=== PATIENT | female | born 1955 | race Caucasian/White ===

== ENCOUNTER 2018-02-13 12:50 | Observation (INO) ==
[2018-02-13] MEDS ORDERED: Acetaminophen 325 MG Tablet PO PRN (20:57)
[2018-02-13] MEDS ORDERED: Zolpidem Tartrate 5 MG Tablet PO PRN (20:57)
[2018-02-13] MEDS ORDERED: Bisacodyl 10 MG Supp RECTAL PRN (20:57)
[2018-02-13] MEDS ORDERED: Sodium Chloride 0.9% 2 ML Flush PRN IV.FLUSH (21:18)
--- NOTE | 2018-02-13 22:26 | P.HPIM ---
[facility] of Present Illness [facility]: No Primary Care Physician Chief Complaint: Left flank pain History of Present Illness: Ms. Ontiveros is a pleasant 62-year-old female with a history of nephrolithiasis who presented to the emergency room in [place] on 02/13/2018 complaining of left flank pain. She was found to have a UTI, 2 mm nephrolithiasis in the left proximal ureter, and moderate hydronephrosis on the left. The patient was seen in her hospital room. She reports pain relief with IV morphine given in [place] -current pain level is 3 out of 10. Pain was dull and aching located on the left flank and was associated with nausea. The patient states she had no recorded fevers but felt chills on Tuesday. Denies any dysuria or hematuria. Denies any vomiting or diarrhea. Denies any chest pain or shortness of breath. Review of Systems All other systems reviewed negative except as stated in HPI PMFSH - History History Provided By: Patient - Medical History Medical History: Medical History (Last Updated 02/13/18 @ 22:46 by VÍCTOR Starr) Nephrolithiasis - Surgical History Surgical History: Surgical History (Last Reviewed 02/13/18 @ 22:45 by VÍCTOR Starr) History of breast biopsy - Family History Family History: Family History (Last Updated 02/13/18 @ 22:45 by VÍCTOR Starr) Daughter No problems noted. Father Alzheimer's dementia Mother Alzheimer's dementia Nephrolithiasis - Tobacco History Smoking Status: Former smoker (During teen years) Tobacco Type: Cigarettes - Alcohol History How Often Do You Have a Drink Containing Alcohol: Never - Substance Use History Substance History: No History of Abuse Medications and Allergies Active Medications: Active Medications Acetaminophen (Tylenol) 650 mg PO Q4H PRN PRN Reason: Temp > 100.4 Bisacodyl (Dulcolax Supp) 10 mg RECTAL DAILY PRN PRN Reason: SEVERE CONSITIPATION Sodium Chloride (Ns Inj) 1,000 mls @ 100 mls/hr IV.CONT .Q10H CLAUS Ondansetron HCl (Zofran Inj) 4 mg IV.PUSH Q6H PRN PRN Reason: NAUSEA OR VOMITING Sennosides (Senokot) 17.2 mg PO Q12H PRN PRN Reason: Moderate Constipation Sodium Chloride (Ns Flush) 2 ml IV.FLUSH BID CLAUS Sodium Chloride (Ns Flush) 2 ml IV.FLUSH PRN PRN PRN Reason: FLUSH AFTER USING IV ACCESS Zolpidem Tartrate (Ambien) 5 mg PO HS PRN PRN Reason: INSOMNIA Allergies Allergy/AdvReac Type Severity Reaction Status Date / Time codeine AdvReac Nausea Verified 02/13/18 13:02 Home Medications Medication Instructions Recorded Confirmed Type No Known Home Medications 02/13/18 02/13/18 History Exam Narrative: GENERAL: This is an older morbidly obese female patient, in no apparent distress. SKIN: No rashes, ecchymoses or lesions. Cool and dry. HEAD: Atraumatic. Normocephalic. EYES: No scleral icterus. No injection or drainage. ENT: Nose without bleeding, purulent drainage. NECK: Trachea midline. No JVD or lymphadenopathy. CARDIOVASCULAR: Regular rate and rhythm without murmurs, gallops, or rubs. RESPIRATORY: Clear to auscultation. Breath sounds equal bilaterally. No wheezes , rales, or rhonchi. GASTROINTESTINAL: Abdomen soft, non-tender, nondistended. No guarding. Genitourinary: No CVA tenderness noted. No suprapubic tenderness noted with palpation. Examination limited by obesity. MUSCULOSKELETAL: Extremities without clubbing, cyanosis, or edema. No calf tenderness. NEUROLOGICAL: Awake and alert. Motor and sensory grossly within normal limits. Normal speech. . - Constitutional obese Caprini VTE Risk Assessment Caprini VTE Risk Assessment: Moderate/High Risk (score >= 2) Caprini Risk Assessment Model: Point Value = 1 Point Value = 2 Point Value = 3 Point Value = 5 Age 41-60 Minor surgery BMI > 25 kg/m2 Swollen legs Varicose veins or History of unexplained or recurrent spontaneous Oral contraceptives or hormone replacement Sepsis (< 1 month) Serious lung disease, including pneumonia (< 1 month) Abnormal pulmonary function Acute myocardial infarction Congestive heart failure (< 1 month) History of inflammatory bowel disease Medical patient at bed rest Age 61-74 Arthroscopic surgery Major open surgery (> 45 min) Laparoscopic surgery (> 45 min) Malignancy Confined to bed (> 72 hours) Immobilizing plaster cast Central venous access Age >= 75 History of VTE Family history of VTE Factor V Leiden Prothrombin [id number] Lupus anticoagulant Anticardiolipin antibodies Elevated serum homocysteine Heparin-induced thrombocytopenia Other congenital or acquired thrombophilia Stroke (< 1 month) Elective arthroplasty Hip, pelvis, or leg fracture Acute spinal cord injury (< 1 month) Prophylaxis Regimen: Total Risk Factor Score Risk Level Prophylaxis Regimen 0-1 Low Early ambulation 2 Moderate Order ONE of the following: *Sequential Compression Device (SCD) *Heparin 5000 units SQ BID 3-4 Higher Order ONE of the following medications: *Heparin 5000 units SQ TID *Enoxaparin/Lovenox 40 mg SQ daily (WT < 150 kg, CrCl > 30 mL/min) *Enoxaparin/Lovenox 30 mg SQ daily (WT < 150 kg, CrCl > 10-29 mL/min) *Enoxaparin/Lovenox 30 mg SQ BID (WT < 150 kg, CrCl > 30 mL/min) AND/OR *Sequential Compression Device (SCD) 5 or more Highest Order ONE of the following medications: *Heparin 5000 units SQ TID (Preferred with Epidurals) *Enoxaparin/Lovenox 40 mg SQ daily (WT < 150 kg, CrCl > 30 mL/min) *Enoxaparin/Lovenox 30 mg SQ daily (WT < 150 kg, CrCl > 10-29 mL/min) *Enoxaparin/Lovenox 30 mg SQ BID (WT < 150 kg, CrCl > 30 mL/min) AND *Sequential Compression Device (SCD) Assessment and Plan - Plan Ms. Ontiveros is a pleasant 62-year-old female with a history of nephrolithiasis who presented to the emergency room in [place] on 02/13/2018 complaining of left flank pain. She was found to have a UTI, 2 mm nephrolithiasis in the left proximal ureter, and moderate hydronephrosis on the left. Urinary tract infection -Leukocytosis with WBC of 17.6 with left shift on admission, temperature 100.1 upon transfer to [facility], abnormal UA consistent with UTI -Continue ciprofloxacin 400 mg IV every 12 hours as started in [place] -Await urine culture and follow results and adjust treatment as indicated -Acetaminophen as needed fever Left hydronephrosis, moderate 2 mm nephrolithiasis left proximal ureter -Consult urology -appreciate assistance -Analgesia with IV morphine as needed per pain scale -Ondansetron IV for nausea as needed -N.p.o. for now; may have ice chips Acute renal insufficiency, most likely secondary to hydronephrosis -BUN 28, creatinine 1.70, estimated GFR 30 -baseline unknown but patient reports no history of renal disease -IV fluid hydration with normal saline at 100 cc/h -Repeat BMP in a.m. and follow results -monitor trends and renal indices -Avoid nephrotoxins Leukocytosis -secondary to UTI -WBC 17.6 on admission with left shift -Repeat CBC in a.m. DVT prophylaxis -SCDs -Start chemoprophylaxis following neurology evaluation Discussed Condition With: Dr. Davis, RN, and patient
[2018-02-13] MEDS ORDERED: Morphine Inj 4 MG/ML Vial IV.PUSH PRN ×2 (22:27→22:28)
--- NOTE | 2018-02-13 23:04 | US ---
EXAM DATE: 02/13/2018 10:33 PM EDT AGE/SEX: 62 years / Female INDICATIONS: Elevated lab values. CLINICAL DATA: This is the patient's initial encounter. Patient reports that signs and symptoms have been present for 1 day and indicates a pain score of 4/10. MEDICAL/SURGICAL HISTORY: . Elevated lab values. . Breast biopsy. COMPARISON: [facility], CT ABDOMEN & PELVIS W/O CONTRAST, 02/13/2018. . MEASUREMENTS: Right Kidney:__11.6 x 6.0 x 6.1 cm Left Kidney:__13.1 x 5.8 x cm FINDINGS: Limited quality exam. Right Kidney: Normal renal cortical thickness. There is questionable prominence of the extrarenal pel vis. No evidence of hydronephrosis. Left Kidney: Normal renal cortical thickness. 2.4 x 2.1 cm cystic structure in the midpole renal sinu s may represent parapelvic cyst or focal hydronephrosis. Bladder: Within normal limits given the degree of distension. Other: None. CONCLUSION: 1. Limited quality examination suggests either a left parapelvic cyst or focal hydronephrosis midpol e. Possible dilation of the right extrarenal pelvis. Electronically signed by: Mamadou Sagastume MD 02/13/2018 11:03 PM EDT
[2018-02-13] MEDS: Sod Chloride 0.9% Inj 1,000 ML IV.CONT SCH (23:12)
[2018-02-14 07:38] LABS: Baso # (Auto) 0.1 th/mm3 (0.0-0.2); Baso % (Auto) 0.3 % (0.0-2.0); Eos % (Auto) 0.3 % (0.0-4.0); Hematocrit 37.1 % (35.0-46.0); Hemoglobin 12.5 gm/dL (11.6-15.3); Lymph # (Auto) 1.1 th/mm3 (1.0-4.8); Lymph % (Auto) 6.9 % (9.0-44.0); Mean Corpuscular HGB Conc 33.9 % (32.0-36.0); Mean Corpuscular Hemoglobin 29.4 pg (27.0-34.0); Mean Corpuscular Volume 86.9 fL (80.0-100.0); Mean Platelet Volume 9.5 fL (7.0-11.0); Mono # (Auto) 1.4 th/mm3 (0.0-0.9); Mono % (Auto) 8.8 % (0.0-8.0); Neut # (Auto) 13.1 th/mm3 (1.8-7.7); Neut % (Auto) 83.7 % (16.0-70.0); Platelet Count 158 th/mm3 (150-450); Red Blood Count 4.26 mil/mm3 (4.00-5.30); Red Cell Distribution Width 13.9 % (11.6-17.2); White Blood Count 15.6 th/mm3 (4.0-11.0)
[2018-02-14 07:58] LABS: Calcium 7.8 mg/dL (8.5-10.1); Potassium 4.1 meq/L (3.5-5.1)
[2018-02-14] MEDS: Sod Chloride 0.9% Inj 1,000 ML IV.CONT SCH ×2 (08:29→16:39)
[2018-02-14] MEDS: Ciprofloxacin 400 MG/200 ML 400 MG/200 ML PIGGYBACK IV.SIG SCH ×2 (08:29→19:52)
[2018-02-14] MEDS: Sodium Chloride 0.9% 2 ML Flush BID IV.FLUSH SCH ×2 (08:30→19:50)
--- NOTE | 2018-02-14 10:50 | P.PN ---
Subjective Interval history: The patient feels a little bit improved today. No nausea or vomiting no diarrhea constipation. Will give diet. No intervention planned by urology. Patient says she had no fever overnight. She reports chills. No pain with urination. Physical Exam Vital signs: Vital Signs 02/13/18 21:50 02/13/18 23:28 02/14/18 00:00 Temperature 100.1 F H 97.8 F Pulse Rate 90 96 H Respiratory Rate 18 18 18 Blood Pressure 141/71 H 151/77 H Pulse Oximetry 93 L 93 L 02/14/18 07:54 Temperature 97.8 F Pulse Rate 20 L Respiratory Rate 20 Blood Pressure 159/84 H Pulse Oximetry 93 L Intake & Output 02/13/18 02/14/18 02/14/18 18:59 06:59 18:59 Intake Total 1200 / 1200 Balance 1200 / 1200 Weight 153.1 kg Intake: IV 1200 / 1200 NS Inj 1,000 ML @ 100 mls/hr IV 1000 / 1000 .CONT .Q10H CLAUS Rx#:[id number] Cipro 400 MG/200 ML Inj 400 mg 200 / 200 In 200 ml @ 200 mls/hr IV.SIG Q12H CLAUS Rx#:[id number] Other: # Voids 3 Weight On Admission 153.1 kg Narrative: GENERAL: This is an older morbidly obese female patient, in no apparent distress. CARDIOVASCULAR: Regular rate and rhythm without murmurs, gallops, or rubs. RESPIRATORY: Clear to auscultation. Breath sounds equal bilaterally. No wheezes , rales, or rhonchi. GASTROINTESTINAL: Abdomen soft, non-tender, nondistended. No guarding. Genitourinary: No CVA tenderness noted. No suprapubic tenderness noted with palpation. Examination limited by obesity. MUSCULOSKELETAL: Extremities without clubbing, cyanosis, or edema. No calf tenderness. NEUROLOGICAL: Awake and alert. Motor and sensory grossly within normal limits. Normal speech. Results - Labs CBC & Chem 7: 02/14/18 06:33 02/14/18 06:33 Laboratory Results - last 24 hr 02/14/18 02/14/18 06:33 06:33 WBC 15.6 H RBC 4.26 Hgb 12.5 Hct 37.1 MCV 86.9 MCH 29.4 MCHC 33.9 RDW 13.9 Plt Count 158 MPV 9.5 Neut % (Auto) 83.7 H Lymph % (Auto) 6.9 L [place] % (Auto) 8.8 H Eos % (Auto) 0.3 Baso % (Auto) 0.3 Neut # (Auto) 13.1 H Lymph # (Auto) 1.1 [place] # (Auto) 1.4 H Eos # (Auto) 0.0 Baso # (Auto) 0.1 WBC Differential . Differential Comment Auto diff final Sodium 139 Potassium 4.1 Chloride 103 Carbon Dioxide 23.0 Anion Gap 13 BUN 25 H Creatinine 1.62 H Estimated GFR 32 L Random Glucose 106 Calcium 7.8 L D - Imaging Impressions Abdomen/Bladder Ultrasound 02/13/18 00:00 CONCLUSION: 1. Limited quality examination suggests either a left parapelvic cyst or focal hydronephrosis midpole. Possible dilation of the right extrarenal pelvis. Assessment and Plan - Plan Ms. Ontiveros is a pleasant 62-year-old female with a history of nephrolithiasis who presented to the emergency room in [place] on 02/13/2018 complaining of left flank pain. She was found to have a UTI, 2 mm nephrolithiasis in the left proximal ureter, and moderate hydronephrosis on the left. Urinary tract infection -Leukocytosis with WBC of 17.6 with left shift on admission, temperature 100.1 upon transfer to [facility], abnormal UA consistent with UTI -Continue ciprofloxacin 400 mg IV every 12 hours as started in [place] -Await urine culture and follow results and adjust treatment as indicated -Acetaminophen as needed fever Left hydronephrosis, moderate 2 mm nephrolithiasis left proximal ureter -Consult urology -appreciate assistance -Analgesia with IV morphine as needed per pain scale -Ondansetron IV for nausea as needed -Advance diet no plan for any surgical intervention. Add Flomax daily. Patient to follow-up with urology at the [facility] after discharge as outpatient. Continue IV hydration and IV antibiotics. Acute renal insufficiency, most likely secondary to hydronephrosis -BUN 28, creatinine 1.70, estimated GFR 30 -baseline unknown but patient reports no history of renal disease -IV fluid hydration with normal saline at 100 cc/h -Repeat BMP in a.m. and follow results -monitor trends and renal indices -Avoid nephrotoxins Leukocytosis -secondary to UTI -WBC 17.6 on admission with left shift -Repeat CBC in a.m. DVT prophylaxis -SCDs -Start chemoprophylaxis following Discussed with the patient, nurse
--- NOTE | 2018-02-14 13:30 | P.CONURO ---
History of Present Illness Service: Urology Consult date: 02/14/18 Requesting Physician: Albina Parsons Reason for Consult: Left ureteral stone Primary Care Provider: Sidra Primary Care Physician Chief Complaint: Left flank pain History of Present Illness: Ms. Ontiveros is a pleasant 62-year-old female with a history of nephrolithiasis who presented to the emergency room in [place] on 02/13/2018 complaining of left flank pain. She was found to have a UTI, and CT showed 2 mm nephrolithiasis in the left proximal ureter, and moderate hydronephrosis on the left, but she also has a left parapelvic cysts which can look like hydro as well. She is on IV fluids and antbx. Pain is controlled. Urology asked to consult. Currently afebrile. no pain now, no N/V. Has mild leukocytosis 15.6 and slightly elevated Cr - 1.6. UC pending Review of Systems All other systems reviewed negative except as stated in HPI PMFSH - History History Provided By: Patient - Medical History Medical History: Medical History (Last Updated 02/13/18 @ 22:46 by VÍCTOR Starr) Nephrolithiasis - Surgical History Surgical History: Surgical History (Last Reviewed 02/13/18 @ 22:45 by VÍCTOR Starr) History of breast biopsy - Family History Family History: Family History (Last Updated 02/13/18 @ 22:45 by VÍCTOR Starr) Daughter No problems noted. Father Alzheimer's dementia Mother Alzheimer's dementia Nephrolithiasis - Tobacco History Second Hand Smoke Exposure: Yes Tobacco Use In Past 30 Days: No Smoking Status: Former smoker Tobacco Type: Cigarettes - Alcohol History How Often Do You Have a Drink Containing Alcohol: Never - Substance Use History Substance History: No History of Abuse - Travel History [facility] Within the Last 8 Weeks: No Recent Travel Out of the Country Within the Last 8 Weeks: No Medications and Allergies Active Medications: Active Medications Acetaminophen (Tylenol) 650 mg PO Q4H PRN PRN Reason: Temp > 100.4 Bisacodyl (Dulcolax Supp) 10 mg RECTAL DAILY PRN PRN Reason: SEVERE CONSITIPATION Sodium Chloride (Ns Inj) 1,000 mls @ 100 mls/hr IV.CONT .Q10H CLAUS Last Admin: 02/14/18 08:29 Dose: 100 mls/hr Ciprofloxacin/Dextrose (Cipro 400 Mg/200 Ml Inj) 400 mg in 200 mls @ 200 mls/ hr IV.SIG Q12H CLAUS Last Infusion: 02/14/18 09:45 Dose: Infused Morphine Sulfate (Morphine Inj) 2 mg IV.PUSH Q3H PRN PRN Reason: pain 3 - 6 Last Admin: 02/13/18 23:26 Dose: 2 mg Morphine Sulfate (Morphine Inj) 4 mg IV.PUSH Q4H PRN PRN Reason: pain > 6 Ondansetron HCl (Zofran Inj) 4 mg IV.PUSH Q6H PRN PRN Reason: NAUSEA OR VOMITING Sennosides (Senokot) 17.2 mg PO Q12H PRN PRN Reason: Moderate Constipation Sodium Chloride (Ns Flush) 2 ml IV.FLUSH BID CLAUS Last Admin: 02/14/18 08:30 Dose: Not Given Sodium Chloride (Ns Flush) 2 ml IV.FLUSH PRN PRN PRN Reason: FLUSH AFTER USING IV ACCESS Zolpidem Tartrate (Ambien) 5 mg PO HS PRN PRN Reason: INSOMNIA Last Admin: 02/13/18 23:12 Dose: 5 mg Allergies Allergy/AdvReac Type Severity Reaction Status Date / Time codeine AdvReac Nausea Verified 02/13/18 13:02 Home Medications Medication Instructions Recorded Confirmed Type No Known Home Medications 02/13/18 02/13/18 History Physical Exam Vital Signs - 24 hr 02/13/18 21:50 02/13/18 23:28 02/14/18 00:00 Temperature 100.1 F H 97.8 F Pulse Rate 90 96 H Respiratory Rate 18 18 18 Blood Pressure 141/71 H 151/77 H Pulse Oximetry 93 L 93 L 02/14/18 07:54 02/14/18 12:00 Temperature 97.8 F 97.8 F Pulse Rate 20 L 83 Respiratory Rate 20 18 Blood Pressure 159/84 H 152/90 H Pulse Oximetry 93 L 94 L Physical Exam: GENERAL: This is a well-nourished, well-developed patient, in no apparent distress. Obese SKIN: No rashes, ecchymoses or lesions. Cool and dry. HEAD: Atraumatic. Normocephalic. CARDIOVASCULAR: Regular rate and rhythm without murmurs, gallops, or rubs. RESPIRATORY: Clear to auscultation. Breath sounds equal bilaterally. No wheezes , rales, or rhonchi. GASTROINTESTINAL: Abdomen soft, non-tender, nondistended. GENITOURINARY: No CVAT NEUROLOGICAL: Awake and alert. Laboratory Results - last 24 hr 02/14/18 02/14/18 06:33 06:33 WBC 15.6 H RBC 4.26 Hgb 12.5 Hct 37.1 MCV 86.9 MCH 29.4 MCHC 33.9 RDW 13.9 Plt Count 158 MPV 9.5 Neut % (Auto) 83.7 H Lymph % (Auto) 6.9 L [place] % (Auto) 8.8 H Eos % (Auto) 0.3 Baso % (Auto) 0.3 Neut # (Auto) 13.1 H Lymph # (Auto) 1.1 [place] # (Auto) 1.4 H Eos # (Auto) 0.0 Baso # (Auto) 0.1 WBC Differential . Differential Comment Auto diff final Sodium 139 Potassium 4.1 Chloride 103 Carbon Dioxide 23.0 Anion Gap 13 BUN 25 H Creatinine 1.62 H Estimated GFR 32 L Random Glucose 106 Calcium 7.8 L D Result Diagrams: 02/14/18 06:33 02/14/18 06:33 Imaging: ITS Impressions Abdomen/Bladder Ultrasound 02/13/18 00:00 CONCLUSION: 1. Limited quality examination suggests either a left parapelvic cyst or focal hydronephrosis midpole. Possible dilation of the right extrarenal pelvis. Assessment and Plan - Plan 62y.o F with 2mm left ureteral stone and mild to mod hydro vs parapelvic cyst. Also with UTI - Continue care as per primary team. Treat UTI, follow up on final UC results to adjust antbx if needed. - No acute intervention needed - She has a good chance to pass this stone on her own - Continue IV fluids, antbx and pain meds prn. Add flomax daily - Pt to follow up with Urology at [place] after d/c as outpt Discussed Condition With: Dr Rubi ACOSTA attending who agrees with this plan
[2018-02-15] MEDS: Sod Chloride 0.9% Inj 1,000 ML IV.CONT SCH ×3 (02:40→22:45)
[2018-02-15] MEDS: Ciprofloxacin 400 MG/200 ML 400 MG/200 ML PIGGYBACK IV.SIG SCH ×2 (08:27→19:49)
[2018-02-15] MEDS: Sodium Chloride 0.9% 2 ML Flush BID IV.FLUSH SCH ×2 (08:29→19:50)
[2018-02-15 14:20] LABS: Baso % (Auto) 0.3 % (0.0-2.0); Eos # (Auto) 0.1 th/mm3 (0.0-0.4); Eos % (Auto) 0.9 % (0.0-4.0); Hemoglobin 12.5 gm/dL (11.6-15.3); Lymph # (Auto) 1.1 th/mm3 (1.0-4.8); Lymph % (Auto) 10.4 % (9.0-44.0); Mean Corpuscular Hemoglobin 29.3 pg (27.0-34.0); Mean Corpuscular Volume 88.9 fL (80.0-100.0); Mean Platelet Volume 9.4 fL (7.0-11.0); Mono # (Auto) 1.2 th/mm3 (0.0-0.9); Mono % (Auto) 11.3 % (0.0-8.0); Neut # (Auto) 8.3 th/mm3 (1.8-7.7); Neut % (Auto) 77.1 % (16.0-70.0); Platelet Count 189 th/mm3 (150-450); Red Blood Count 4.27 mil/mm3 (4.00-5.30); Red Cell Distribution Width 13.9 % (11.6-17.2); White Blood Count 10.8 th/mm3 (4.0-11.0)
[2018-02-15 14:43] LABS: Calcium 8.1 mg/dL (8.5-10.1)
--- NOTE | 2018-02-15 18:40 | P.PN ---
Subjective Interval history: Some chills overnight however no fevers. She was vomited last night and says she had a rough night. She was able to tolerate some breakfast in the morning. No nausea or vomiting at this time. Pain is fairly controlled by medications. Physical Exam Vital signs: Vital Signs 02/14/18 20:00 02/15/18 00:00 02/15/18 08:00 Temperature 98.2 F 97.7 F 98.5 F Pulse Rate 77 83 84 Respiratory Rate 18 18 18 Blood Pressure 126/80 134/71 169/79 H Pulse Oximetry 93 L 94 L 95 02/15/18 12:00 02/15/18 16:00 Temperature 97.9 F 98.7 F Pulse Rate 88 79 Respiratory Rate 18 17 Blood Pressure 163/82 H 154/76 H Pulse Oximetry 95 95 Intake & Output 02/14/18 02/15/18 02/15/18 18:59 06:59 18:59 Intake Total 2920 / 2920 1200 / 1200 2400 / 2400 Output Total / Balance 2920 / 2920 1199 / 1199 2400 / 2400 Weight 156 kg Intake: IV 2200 / 2200 1200 / 1200 1200 / 1200 NS Inj 1,000 ML @ 100 mls/hr IV 2000 / 2000 1000 / 1000 1000 / 1000 .CONT .Q10H CLAUS Rx#:[id number] Cipro 400 MG/200 ML Inj 400 mg 200 / 200 200 / 200 200 / 200 In 200 ml @ 200 mls/hr IV.SIG Q12H CLAUS Rx#:[id number] Oral 720 / 720 1200 / 1200 Output: Urine 1 / Other: # Voids 5 4 # Bowel Movements 0 1 0 Narrative: GENERAL: This is an older morbidly obese female patient, in no apparent distress. CARDIOVASCULAR: Regular rate and rhythm without murmurs, gallops, or rubs. RESPIRATORY: Clear to auscultation. Breath sounds equal bilaterally. No wheezes , rales, or rhonchi. GASTROINTESTINAL: Abdomen soft, non-tender, nondistended. No guarding. Genitourinary: No CVA tenderness noted. No suprapubic tenderness noted with palpation. Examination limited by obesity. MUSCULOSKELETAL: Extremities without clubbing, cyanosis, or edema. No calf tenderness. NEUROLOGICAL: Awake and alert. Motor and sensory grossly within normal limits. Normal speech. Results - Labs CBC & Chem 7: 09/26/18 13:42 02/15/18 13:42 Laboratory Results - last 24 hr 02/15/18 02/15/18 13:42 13:42 WBC 10.8 RBC 4.27 Hgb 12.5 Hct 38.0 MCV 88.9 MCH 29.3 MCHC 33.0 RDW 13.9 Plt Count 189 MPV 9.4 Neut % (Auto) 77.1 H Lymph % (Auto) 10.4 [place] % (Auto) 11.3 H Eos % (Auto) 0.9 Baso % (Auto) 0.3 Neut # (Auto) 8.3 H Lymph # (Auto) 1.1 [place] # (Auto) 1.2 H Eos # (Auto) 0.1 Baso # (Auto) 0.0 WBC Differential . Differential Comment Auto diff final Sodium 139 Potassium 4.0 Chloride 107 Carbon Dioxide 24.0 Anion Gap 8 BUN 23 H Creatinine 1.58 H Estimated GFR 33 L Random Glucose 116 H Calcium 8.1 L Assessment and Plan - Plan Ms. Ontiveros is a pleasant 62-year-old female with a history of nephrolithiasis who presented to the emergency room in [place] on 02/13/2018 complaining of left flank pain. She was found to have a UTI, 2 mm nephrolithiasis in the left proximal ureter, and moderate hydronephrosis on the left. Urinary tract infection -Leukocytosis with WBC of 17.6 with left shift on admission, temperature 100.1 upon transfer to [facility], abnormal UA consistent with UTI -Continue ciprofloxacin 400 mg IV every 12 hours as started in [place] -Await urine culture and follow results and adjust treatment as indicated -Acetaminophen as needed fever Left hydronephrosis, moderate 2 mm nephrolithiasis left proximal ureter -Consult urology -appreciate assistance -Analgesia with IV morphine as needed per pain scale -Ondansetron IV for nausea as needed -Advance diet no plan for any surgical intervention. Add Flomax daily. Patient to follow-up with urology at the [facility] [place]note 2[place] after discharge as outpatient. Continue IV hydration and IV antibiotics. Acute renal insufficiency, most likely secondary to hydronephrosis -BUN 28, creatinine 1.70, estimated GFR 30 -baseline unknown but patient reports no history of renal disease -IV fluid hydration with normal saline at 100 cc/h -Repeat BMP in a.m. and follow results -monitor trends and renal indices -Avoid nephrotoxins Leukocytosis -secondary to UTI -WBC 17.6 on admission with left shift -Repeat CBC in a.m. DVT prophylaxis -SCDs -Start chemoprophylaxis following Discussed with the patient, nurse
[2018-02-16 07:20] LABS: Baso # (Auto) 0.1 th/mm3 (0.0-0.2); Baso % (Auto) 0.7 % (0.0-2.0); Eos # (Auto) 0.1 th/mm3 (0.0-0.4); Eos % (Auto) 0.9 % (0.0-4.0); Hematocrit 36.1 % (35.0-46.0); Hemoglobin 12.4 gm/dL (11.6-15.3); Lymph # (Auto) 1.6 th/mm3 (1.0-4.8); Lymph % (Auto) 14.7 % (9.0-44.0); Mean Corpuscular HGB Conc 34.4 % (32.0-36.0); Mean Corpuscular Hemoglobin 29.8 pg (27.0-34.0); Mean Corpuscular Volume 86.6 fL (80.0-100.0); Mean Platelet Volume 9.6 fL (7.0-11.0); Mono # (Auto) 1.5 th/mm3 (0.0-0.9); Neut # (Auto) 7.4 th/mm3 (1.8-7.7); Neut % (Auto) 69.7 % (16.0-70.0); Platelet Count 178 th/mm3 (150-450); Red Blood Count 4.17 mil/mm3 (4.00-5.30); Red Cell Distribution Width 13.7 % (11.6-17.2); White Blood Count 10.6 th/mm3 (4.0-11.0)
[2018-02-16 07:29] LABS: Calcium 8.1 mg/dL (8.5-10.1); Carbon Dioxide 22.9 meq/L (21.0-32.0); Potassium 4.1 meq/L (3.5-5.1)
[2018-02-16 07:58] LABS: Platelet Estimate Normal (Normal); Platelet Morphology Clumped (Normal)
[2018-02-16] MEDS: Ciprofloxacin 400 MG/200 ML 400 MG/200 ML PIGGYBACK IV.SIG SCH ×2 (09:44→21:55)
[2018-02-16] MEDS: Sod Chloride 0.9% Inj 1,000 ML IV.CONT SCH ×2 (09:45→21:55)
[2018-02-16] MEDS: Sodium Chloride 0.9% 2 ML Flush BID IV.FLUSH SCH ×2 (09:46→21:56)
--- NOTE | 2018-02-16 11:13 | P.PN ---
Subjective Interval history: Says still nauseated but no more vomiting. Able to keep some food down today. Pain is better controlled. No fever or chills overnight. Kidney function improving but slowly. Did not pass stone. Physical Exam Vital signs: Vital Signs 02/15/18 12:00 02/15/18 16:00 02/15/18 20:00 Temperature 97.9 F 98.7 F 98.5 F Pulse Rate 88 79 92 H Respiratory Rate 18 17 17 Blood Pressure 163/82 H 154/76 H 158/72 H Pulse Oximetry 95 95 94 L 02/16/18 00:00 02/16/18 08:00 Temperature 98.0 F 97.2 F L Pulse Rate 92 H 79 Respiratory Rate 17 18 Blood Pressure 145/75 H 163/87 H Pulse Oximetry 96 96 Intake & Output 02/15/18 02/16/18 02/16/18 18:59 06:59 18:59 Intake Total 2400 / 2400 2100 / 2100 1000 / 1000 Balance 2400 / 2400 2100 / 2100 1000 / 1000 Weight 156.3 kg Intake: IV 1200 / 1200 1200 / 1200 1000 / 1000 NS Inj 1,000 ML @ 100 mls/hr IV 1000 / 1000 1000 / 1000 1000 / 1000 .CONT .Q10H [facility] Rx#:[id number] Cipro 400 MG/200 ML Inj 400 mg 200 / 200 200 / 200 In 200 ml @ 200 mls/hr IV.SIG Q12H [facility] Rx#:[id number] Oral 1200 / 1200 900 / 900 Other: # Voids 4 2 # Bowel Movements 0 Narrative: GENERAL: This is an older morbidly obese female patient, in no apparent distress. CARDIOVASCULAR: Regular rate and rhythm without murmurs, gallops, or rubs. RESPIRATORY: Clear to auscultation. Breath sounds equal bilaterally. No wheezes , rales, or rhonchi. GASTROINTESTINAL: Abdomen soft, obese, non-tender, nondistended. No guarding. Genitourinary: No CVA tenderness noted. No suprapubic tenderness noted with palpation. Examination limited by obesity. MUSCULOSKELETAL: Extremities without clubbing, cyanosis, or edema. No calf tenderness. NEUROLOGICAL: Awake and alert. Motor and sensory grossly within normal limits. Normal speech. Results - Labs CBC & Chem 7: 02/16/18 06:12 02/16/18 06:12 Laboratory Results - last 24 hr 02/15/18 02/15/18 02/16/18 13:42 13:42 06:12 WBC 10.8 10.6 RBC 4.27 4.17 Hgb 12.5 12.4 Hct 38.0 36.1 MCV 88.9 86.6 MCH 29.3 29.8 MCHC 33.0 34.4 RDW 13.9 13.7 Plt Count 189 178 MPV 9.4 9.6 Prelim Diff (Auto) Slide review pending Neut % (Auto) 77.1 H 69.7 Lymph % (Auto) 10.4 14.7 [place] % (Auto) 11.3 H 14.0 H Eos % (Auto) 0.9 0.9 Baso % (Auto) 0.3 0.7 Neut # (Auto) 8.3 H 7.4 Lymph # (Auto) 1.1 1.6 [place] # (Auto) 1.2 H 1.5 H Eos # (Auto) 0.1 0.1 Baso # (Auto) 0.0 0.1 WBC Differential . . Diff Scan Auto diff confirmed Differential Comment Auto diff final . Platelet Estimate Normal Platelet Morphology Clumped H Sodium 139 Potassium 4.0 Chloride 107 Carbon Dioxide 24.0 Anion Gap 8 BUN 23 H Creatinine 1.58 H Estimated GFR 33 L Random Glucose 116 H Calcium 8.1 L 02/16/18 06:12 WBC RBC Hgb Hct MCV MCH MCHC RDW Plt Count MPV Prelim Diff (Auto) Neut % (Auto) Lymph % (Auto) [place] % (Auto) Eos % (Auto) Baso % (Auto) Neut # (Auto) Lymph # (Auto) [place] # (Auto) Eos # (Auto) Baso # (Auto) WBC Differential Diff Scan Differential Comment Platelet Estimate Platelet Morphology Sodium 142 Potassium 4.1 Chloride 110 H Carbon Dioxide 22.9 Anion Gap 9 BUN 21 H Creatinine 1.40 H Estimated GFR 38 L Random Glucose 96 Calcium 8.1 L Assessment and Plan - Plan Ms. Ontiveros is a pleasant 62-year-old female with a history of nephrolithiasis who presented to the emergency room in [place] on 02/13/2018 complaining of left flank pain. She was found to have a UTI, 2 mm nephrolithiasis in the left proximal ureter, and moderate hydronephrosis on the left. Urinary tract infection -Leukocytosis with WBC of 17.6 with left shift on admission, temperature 100.1 upon transfer to [facility] main, abnormal UA consistent with UTI -Continue ciprofloxacin 400 mg IV every 12 hours as started in [place]. With Klebsiella in the urine we will continue ciprofloxacin p.o. at discharge, will switch to p.o. when patient would less nausea and no vomiting. -Acetaminophen as needed fever Left hydronephrosis, moderate 2 mm nephrolithiasis left proximal ureter -Consult urology -appreciate assistance -Analgesia with IV morphine as needed per pain scale -Ondansetron IV for nausea as needed -Advance diet no plan for any surgical intervention. Add Flomax daily. Patient to follow-up with urology at the [facility] after discharge as outpatient. Continue IV hydration and IV antibiotics. Acute renal insufficiency, most likely secondary to hydronephrosis. Kidney function iimproving however not at baseline. -BUN 28, creatinine 1.70, estimated GFR 30 on admission -baseline unknown but patient reports no history of renal disease -IV fluid hydration with normal saline at 100 cc/h -Repeat BMP in a.m. and follow results -monitor trends and renal indices -Avoid nephrotoxins Leukocytosis -secondary to UTI -WBC 17.6 on admission with left shift, leukocytosis resolved -Monitor CBC DVT prophylaxis -SCDs Ambulation Discussed with the patient, nurse Kidney function improving slowly but not at baseline continue IV fluids. Possible discharge in 1 or 2 days when kidney back to normal. We will switch to p.o. meds when no more nausea
[2018-02-17] MEDS: Ciprofloxacin 400 MG/200 ML 400 MG/200 ML PIGGYBACK IV.SIG SCH (09:43)
[2018-02-17] MEDS: Sod Chloride 0.9% Inj 1,000 ML IV.CONT SCH ×2 (09:44→15:06)
[2018-02-17] MEDS: Sodium Chloride 0.9% 2 ML Flush BID IV.FLUSH SCH (09:45)
--- NOTE | 2018-02-17 11:04 | P.PN ---
Subjective Interval history: Patient with less nausea, will switch to PO meds, if tolerates PO meds and kidney function back to normal can DC later today Physical Exam Vital signs: Vital Signs 02/16/18 12:00 02/16/18 16:00 02/16/18 20:00 Temperature 98.0 F 97.4 F L 98.0 F Pulse Rate 72 73 80 Respiratory Rate 17 16 17 Blood Pressure 172/76 H 143/69 H 162/67 H Pulse Oximetry 95 95 96 02/17/18 00:00 02/17/18 04:00 02/17/18 08:00 Temperature 98.4 F 98.0 F 98.0 F Pulse Rate 76 72 60 Respiratory Rate 18 17 18 Blood Pressure 157/67 H 157/74 H 165/79 H Pulse Oximetry 97 94 L 94 L Intake & Output 02/16/18 02/17/18 02/17/18 18:59 06:59 18:59 Intake Total 2300 / 2300 2100 / 2100 1000 / 1000 Balance 2300 / 2300 2100 / 2100 1000 / 1000 Weight 157.7 kg Intake: IV 1200 / 1200 1200 / 1200 1000 / 1000 NS Inj 1,000 ML @ 100 mls/hr IV 1000 / 1000 1000 / 1000 1000 / 1000 .CONT .Q10H [facility] Rx#:[id number] Cipro 400 MG/200 ML Inj 400 mg 200 / 200 200 / 200 In 200 ml @ 200 mls/hr IV.SIG Q12H [facility] Rx#:[id number] Oral 1100 / 1100 900 / 900 Other: # Voids 3 11 # Bowel Movements 2 Results - Labs CBC & Chem 7: 02/16/18 06:12 02/17/18 12:22 Assessment and Plan - Plan Ms. Ontiveros is a pleasant 62-year-old female with a history of nephrolithiasis who presented to the emergency room in [place] on 02/13/2018 complaining of left flank pain. She was found to have a UTI, 2 mm nephrolithiasis in the left proximal ureter, and moderate hydronephrosis on the left. Urinary tract infection -Leukocytosis with WBC of 17.6 with left shift on admission, temperature 100.1 upon transfer to [facility], abnormal UA consistent with UTI -Continue ciprofloxacin 400 mg IV every 12 hours as started in [place]. With Klebsiella in the urine we will continue ciprofloxacin p.o. at discharge, will switch to p.o. when patient would less nausea and no vomiting. -Acetaminophen as needed fever Left hydronephrosis, moderate 2 mm nephrolithiasis left proximal ureter -Consult urology -appreciate assistance -Analgesia with IV morphine as needed per pain scale -Ondansetron IV for nausea as needed -Advance diet no plan for any surgical intervention. Add Flomax daily. Patient to follow-up with urology at the [facility] after discharge as outpatient. Continue IV hydration and IV antibiotics. Acute renal insufficiency, most likely secondary to hydronephrosis. Kidney function iimproving however not at baseline. -BUN 28, creatinine 1.70, estimated GFR 30 on admission -baseline unknown but patient reports no history of renal disease -IV fluid hydration with normal saline at 100 cc/h -Repeat BMP in a.m. and follow results -monitor trends and renal indices -Avoid nephrotoxins Leukocytosis -secondary to UTI -WBC 17.6 on admission with left shift, leukocytosis resolved -Monitor CBC DVT prophylaxis -SCDs Ambulation Discussed with the patient, nurse Kidney function improving slowly but not at baseline continue IV fluids. Patient with less nausea, will switch to PO meds, if tolerates PO meds and kidney function back to normal can DC later today. To continue aggressive PO fluids.
[2018-02-17 13:01] LABS: Calcium 8.1 mg/dL (8.5-10.1); Carbon Dioxide 26.1 meq/L (21.0-32.0); Potassium 4.1 meq/L (3.5-5.1)
[2018-02-17 13:13] VITALS: BP 149/70; PULSE 75; RESP 17; TEMP 97.6; O2SAT 96
--- NOTE | 2018-02-17 16:46 | P.DS ---
Date of admission: 02/13/18 21:43 Primary care physician: No Primary Care Physician Brief History from admission: Ms. Ontiveros is a pleasant 62-year-old female with a history of nephrolithiasis who presented to the emergency room in [place] on 02/13/2018 complaining of left flank pain. She was found to have a UTI, 2 mm nephrolithiasis in the left proximal ureter, and moderate hydronephrosis on the left. The patient was seen in her hospital room. She reports pain relief with IV morphine given in [place] -current pain level is 3 out of 10. Pain was dull and aching located on the left flank and was associated with nausea. The patient states she had no recorded fevers but felt chills on Tuesday. Denies any dysuria or hematuria. Denies any vomiting or diarrhea. Denies any chest pain or shortness of breath. DS: Medications - Discharge Medications Prescriptions: ciprofloxacin HCl 500 mg PO Q12HR #10 tab tamsulosin 0.4 mg PO DAILY #30 cap DS: Summary Hospital Course: Ms. Ontiveros is a pleasant 62-year-old female with a history of nephrolithiasis who presented to the emergency room in [place] on 02/13/2018 complaining of left flank pain. She was found to have a UTI, 2 mm nephrolithiasis in the left proximal ureter, and moderate hydronephrosis on the left. Urinary tract infection -Leukocytosis with WBC of 17.6 with left shift on admission, temperature 100.1 upon transfer to [facility], abnormal UA consistent with UTI -Continue ciprofloxacin 400 mg IV every 12 hours as started in [place]. With Klebsiella in the urine we will continue ciprofloxacin p.o. at discharge, will switch to p.o. when patient would less nausea and no vomiting. -Acetaminophen as needed fever Left hydronephrosis, moderate 2 mm nephrolithiasis left proximal ureter -Consult urology -appreciate assistance -Analgesia with IV morphine as needed per pain scale -Ondansetron IV for nausea as needed -Advance diet no plan for any surgical intervention. Add Flomax daily. Patient to follow-up with urology at the [facility] after discharge as outpatient. Continue IV hydration and IV antibiotics. Acute renal insufficiency, most likely secondary to hydronephrosis. Kidney function iimproving however not at baseline. -BUN 28, creatinine 1.70, estimated GFR 30 on admission -baseline unknown but patient reports no history of renal disease -IV fluid hydration with normal saline at 100 cc/h -Repeat BMP in a.m. and follow results -monitor trends and renal indices -Avoid nephrotoxins Leukocytosis -secondary to UTI -WBC 17.6 on admission with left shift, leukocytosis resolved -Monitor CBC DVT prophylaxis -SCDs Ambulation Discussed with the patient, nurse Kidney function improving slowly but not at baseline continue IV fluids. Patient with less nausea, will switch to PO meds, if tolerates PO meds and kidney function back to normal can DC later today. To continue aggressive PO fluids. - Time Spent with Patient Total time spent providing and/or coordinating discharge services: Greater than 30 minutes - Quality: VTE Deep Vein Thrombosis/Pulmonary Embolism Present on Admission: No Exam Vital signs: Vital Signs 02/16/18 20:00 02/17/18 00:00 02/17/18 04:00 Temperature 98.0 F 98.4 F 98.0 F Pulse Rate 80 76 72 Respiratory Rate 17 18 17 Blood Pressure 162/67 H 157/67 H 157/74 H Pulse Oximetry 96 97 94 L 02/17/18 08:00 02/17/18 12:00 Temperature 98.0 F 97.6 F Pulse Rate 60 75 Respiratory Rate 18 17 Blood Pressure 165/79 H 149/70 H Pulse Oximetry 94 L 96 Intake & Output 02/16/18 02/17/18 02/17/18 18:59 06:59 18:59 Intake Total 2300 / 2300 2100 / 2100 1200 / 1200 Balance 2300 / 2300 2100 / 2100 1200 / 1200 Weight 157.7 kg Intake: IV 1200 / 1200 1200 / 1200 1200 / 1200 NS Inj 1,000 ML @ 100 mls/hr IV 1000 / 1000 1000 / 1000 1000 / 1000 .CONT .Q10H [facility] Rx#:[id number] Cipro 400 MG/200 ML Inj 400 mg 200 / 200 200 / 200 200 / 200 In 200 ml @ 200 mls/hr IV.SIG Q12H [facility]US Rx#:[id number] Oral 1100 / 1100 900 / 900 Other: # Voids 3 11 # Bowel Movements 2 Narrative: GENERAL: This is an older morbidly obese female patient, in no apparent distress. CARDIOVASCULAR: Regular rate and rhythm without murmurs, gallops, or rubs. RESPIRATORY: Clear to auscultation. Breath sounds equal bilaterally. No wheezes , rales, or rhonchi. GASTROINTESTINAL: Abdomen soft, obese, non-tender, nondistended. No guarding. Genitourinary: No CVA tenderness noted. No suprapubic tenderness noted with palpation. Examination limited by obesity. MUSCULOSKELETAL: Extremities without clubbing, cyanosis, or edema. No calf tenderness. NEUROLOGICAL: Awake and alert. Motor and sensory grossly within normal limits. Normal speech. Results Procedures completed during hospitalization: no procedures Labs on day of discharge: Labs from last 24 hours 02/17/18 12:22 Sodium 141 Potassium 4.1 Chloride 109 H Carbon Dioxide 26.1 Anion Gap 6 BUN 18 Creatinine 1.38 H Estimated GFR 39 L Random Glucose 105 Calcium 8.1 L - Impressions ITS Impressions Abdomen/Bladder Ultrasound 02/13/18 00:00 CONCLUSION: 1. Limited quality examination suggests either a left parapelvic cyst or focal hydronephrosis midpole. Possible dilation of the right extrarenal pelvis. Discharge Plan - Discharge Disposition Patient Disposition: 50 Hospice/Home - Discharge Condition Condition: Stable - Discharge Order Discharge Orders: Discharge Order (Routine); Ordered 02/17/18 Ordered By: Albina Parsons - Discharge Details Anticipated Discharge Date: 02/17/18 - Physicians Team Primary Care Provider: Primary Sidra Bello Attending Provider: Albina Parsons Other Providers: Jorge Venegas MD - Rxs /Orders / Referrals /Forms Prescriptions: New ciprofloxacin HCl 500 mg Tablet 500 mg PO Q12HR Qty: 10 RF: 0 tamsulosin 0.4 mg Capsule 0.4 mg PO DAILY Qty: 30 RF: 0 No Action No Known Home Medications Referrals: Primary Care Sidra Guidry [Primary Care Provider] - See Instructions ( Please call the physician's office to book the appointment to be seen within [ 2-3 days ]. judo [phone] [place] [address] *[facility] offers same day APPT. Call the morning you would like to be seen Office opens at 8:00am ) Jorge Venegas MD [Physician] - See Instructions ( Please call the physician's office to book the appointment to be seen within [1- 2 weeks ].) - Discharge Instructions Patient Printed Instructions: Ciprofloxacin (By mouth), Tamsulosin (By mouth), Kidney Stones (DC), Hydronephrosis (DC)
[2018-02-17] MEDS ORDERED: Ciprofloxacin 500 MG Tablet PO SCH (21:00)
== END 2018-02-17 16:51 | disposition hospice, home (50) ==
LOC: NEDDLT 21:33 → N07 21:33
PROVIDERS: ADMIT Hospitalist; ATTEND Hospitalist